=== PATIENT | female | born 1985 | race African-American/Black ===

== ENCOUNTER 2019-11-06 17:57 | Emergency (ER) | payer MEDICAID, SELFPAY ==
[2019-11-06] MEDS ORDERED: Ibuprofen 200 MG TAB ONE ×2 (19:20→19:49)
[2019-11-06] MEDS ORDERED: Acetaminophen 500 MG TAB ONE (19:20)
[2019-11-06] MEDS ORDERED: Ondansetron PF 4 MG/2 ML Vial ONE (19:21)
[2019-11-06] MEDS ORDERED: diphenhydrAMINE 50 MG/ML VIAL ONE (21:19)
[2019-11-06] MEDS ORDERED: Metoclopramide HCl 10 MG/2 ML VIAL ONE (21:19)
== END 2019-11-06 21:55 | disposition home or self-care (01) ==
LOC: ERS 17:57
DX: J11.1 Influenza due to unidentified influenza virus with other respiratory manifestations (principal); R51 Headache
CPT/HCPCS: 96361; 96365; 96375; J1200; J2405; J2765